=== PATIENT | male | born 1955 | race Caucasian/White ===

== ENCOUNTER 2021-03-29 12:45 | Inpatient (IN) | payer MEDICARE ==
[2021-03-29] MEDS ORDERED: Midazolam HCl 2 mg/2 ml Vial ONE ×3 (13:00→14:52)
[2021-03-29] MEDS ORDERED: Fentanyl 100 MCG/2 ML VIAL ONE ×2 (13:00→14:52)
[2021-03-29] MEDS ORDERED: TICAGRELOR 90 MG TABLET ONE (13:21)
[2021-03-29] MEDS ORDERED: Adenosine 6 MG/2 ML VIAL ONE ×2 (13:22→14:51)
[2021-03-29] MEDS ORDERED: Acetaminophen 325 MG TAB PO PRN (13:38)
[2021-03-29] MEDS ORDERED: Zolpidem Tartrate 5 MG TAB PO PRN (13:38)
[2021-03-29] MEDS ORDERED: HYDROcodone/Acetaminophen 7.5/325 mg Tablet PO PRN (13:38)
[2021-03-29] MEDS ORDERED: Loperamide HCl 2 MG CAP PO PRN (13:38)
[2021-03-29] MEDS ORDERED: Ondansetron PF 4 MG/2 ML Vial IVP PRN (13:38)
[2021-03-29] MEDS ORDERED: Calcium Carbonate 500 MG ChewTAB PO PRN (13:38)
[2021-03-29] MEDS ORDERED: HYDROcodone/Acetaminophen 5/325 mg Tablet PO PRN (13:38)
[2021-03-29] MEDS ORDERED: Heparin 10,000 UNITS/ 10 ML VIAL ONE (14:50)
[2021-03-29] MEDS ORDERED: Nitroglycerin 50 MG/250 ML BOT 250 ML ONE (14:50)
[2021-03-29] MEDS ORDERED: Bivalirudin 250 MG VIAL ONE (14:51)
[2021-03-29] MEDS ORDERED: Lidocaine 1% PF 5 ML VIAL ONE (14:52)
[2021-03-29] MEDS ORDERED: Nitroglycerin 0.4 MG TAB (25 Tab Bottle) SL PRN (15:05)
[2021-03-29] MEDS ORDERED: Acetaminophen/Codeine 30-300mg Tablet PO PRN ×2 (15:05)
[2021-03-29 15:16] VITALS: BMI 28.5
[2021-03-29] MEDS ORDERED: Sodium Chloride 0.9% 250 ML 200 ML IV PRN (16:19)
[2021-03-29] MEDS ORDERED: Lisinopril 5 MG TAB PO SCH (17:00)
[2021-03-29] MEDS ORDERED: Atropine Sulfate 1 mg/10 ml Syringe ONE (17:45)
[2021-03-29] MEDS: Carvedilol 3.125 MG TAB PO SCH (17:59)
[2021-03-29] MEDS: Rosuvastatin 20 MG TAB PO SCH (20:43)
[2021-03-29] MEDS: Famotidine 20 MG TAB PO SCH (20:43)
[2021-03-29] MEDS: TICAGRELOR 90 MG TABLET PO SCH (20:43)
[2021-03-30 04:05] LABS: #Monocytes 1.2 10x3/uL (0.0-1.1); #Neutrophils 10.6 10x3/uL (1.5-8.4); %Basophils 0.1 % (0.0-2.0); %Monocytes 9.2 % (0.0-10.0); %Neutrophils 81.3 % (40.0-75.0); Hemoglobin 13.8 g/dL (13.5-17.5); Mean Corpuscular HGB CONC 33.5 g/dL (32.0-36.0); Mean Corpuscular Hemoglobin 29.2 pg (27.0-33.0); Mean Corpuscular Volume 87.3 fl (81.2-95.1); Mean Platelet Volume 10.2 fl (7.4-10.4); Platelet Count 246 10x3/uL (150-450); RBC Distribution Width 12.3 % (11.5-14.5); Red Blood Cell (RBC) Count 4.72 10x6/uL (4.32-5.72)
[2021-03-30 04:19] LABS: ALT (SGPT) 58 U/L (8-55); AST (SGOT) 171 U/L (5-34); Albumin 3.8 g/dL (3.4-4.8); Alkaline Phosphatase 82 U/L (40-110); Anion Gap 11 mmol/L (10-20); BUN (Urea Nitrogen) 17 mg/dL (8.4-25.7); Bilirubin, Total 1.1 mg/dL (0.2-1.2); Calc. Creatinine Clearance 97 mL/min (70-130); Calcium 8.9 mg/dL (7.8-10.44); Carbon Dioxide 23 mmol/L (23-31); Cardiac Risk 4.8 (Less than 4.5); Chloride 108 mmol/L (98-107); Cholesterol 200 mg/dl (< 200 Desired); Globulin 2.4 g/dL (2.4-3.5); Glucose 139 mg/dL (80-115); HDL Cholesterol 42 mg/dL (>60 Neg Risk); LDL Cholesterol, Calculated 142 mg/dL; Potassium 4.2 mmol/L (3.5-5.1); Protein, Total 6.2 g/dL (5.8-8.1); Sodium 138 mmol/L (136-145); Triglycerides 81 mg/dL (Less than 150)
[2021-03-30 06:19] LABS: Hemoglobin A1c 5.5 % (4.0-6.0)
[2021-03-30] MEDS: TICAGRELOR 90 MG TABLET PO SCH ×2 (08:01→20:43)
[2021-03-30] MEDS: Carvedilol 3.125 MG TAB PO SCH ×2 (08:02→17:20)
[2021-03-30] MEDS: Famotidine 20 MG TAB PO SCH ×2 (08:02→20:43)
[2021-03-30] MEDS: Lisinopril 5 MG TAB PO SCH (08:02)
[2021-03-30] MEDS: Enoxaparin Sodium 40 MG/0.4 ML SYRINGE SC SCH (08:03)
[2021-03-30 09:01] LABS: Troponin I 35.274 ng/mL (< 0.028)
[2021-03-30 11:04] LABS: SARS-CoV-2 PCR by NAA Not Detected (NotDetected)
[2021-03-30 12:43] LABS: Troponin I 31.013 ng/mL (< 0.028)
[2021-03-30] MEDS: Senokot S 8.6-50 MG TAB PO PRN (20:43)
[2021-03-30] MEDS: Rosuvastatin 20 MG TAB PO SCH (20:43)
[2021-03-31] MEDS: Senokot S 8.6-50 MG TAB PO PRN (07:33)
[2021-03-31] MEDS: Enoxaparin Sodium 40 MG/0.4 ML SYRINGE SC SCH (09:04)
[2021-03-31] MEDS: Famotidine 20 MG TAB PO SCH (09:04)
[2021-03-31] MEDS: TICAGRELOR 90 MG TABLET PO SCH (09:04)
[2021-03-31] MEDS: Carvedilol 3.125 MG TAB PO SCH (09:04)
[2021-03-31] MEDS: Lisinopril 5 MG TAB PO SCH (09:05)
[2021-03-31 13:41] VITALS: BP 94/55; TEMP 97.5
== END 2021-03-31 14:13 | disposition home or self-care (01) | DRG 247 ==
LOC: CSHCCL 12:45 → CSHIMCU 15:00 → CSHTELE 03-30 09:54
PROVIDERS: ADMIT Specialist; ATTEND Specialist
PROC: 027035Z Dilation of Coronary Artery, One Artery with Two Drug-eluting Intraluminal Devices, Percutaneous Approach (ICD-10-PCS; principal; 2021-03-29)
PROC: 02C03ZZ Extirpation of Matter from Coronary Artery, One Artery, Percutaneous Approach (ICD-10-PCS; 2021-03-29)
PROC: 4A023N7 Measurement of Cardiac Sampling and Pressure, Left Heart, Percutaneous Approach (ICD-10-PCS; 2021-03-29)
PROC: B2111ZZ Fluoroscopy of Multiple Coronary Arteries using Low Osmolar Contrast (ICD-10-PCS; 2021-03-29)
DX: I21.02 ST elevation (STEMI) myocardial infarction involving left anterior descending coronary artery (principal); I10 Essential (primary) hypertension; I25.10 Atherosclerotic heart disease of native coronary artery without angina pectoris; E78.5 Hyperlipidemia, unspecified; I07.1 Rheumatic tricuspid insufficiency; Z20.822 Contact with and (suspected) exposure to COVID-19
CPT/HCPCS: 36415; 80053; 80061; 83036; 84484; 85025; 85347; 92941; 92978; 93005; 93010; 93306; 93458; 97139; 99152; 99153; C1753; C1874; C1887; C9606; J0153; J0583; J1644; J1650; J2250; J3010; U0003; U0005

== ENCOUNTER 2021-04-07 12:10 | Emergency (ER) | payer MEDICARE ==
[2021-04-07 13:15] LABS: #Basophils 0.1 10x3/uL (0.0-0.2); #Eosinphils 0.2 10x3/uL (0.0-0.5); #Monocytes 0.5 10x3/uL (0.0-1.1); #Neutrophils 6.7 10x3/uL (1.5-8.4); %Basophils 0.7 % (0.0-2.0); %Eosinophils 2.1 % (0.0-6.0); %Neutrophils 73.8 % (40.0-75.0); Hemoglobin 13.3 g/dL (13.5-17.5); Mean Corpuscular HGB CONC 33.1 g/dL (32.0-36.0); Mean Corpuscular Hemoglobin 29.5 pg (27.0-33.0); Mean Corpuscular Volume 89.1 fl (81.2-95.1); Mean Platelet Volume 10.6 fl (7.4-10.4); Platelet Count 343 10x3/uL (150-450); RBC Distribution Width 11.8 % (11.5-14.5); Red Blood Cell (RBC) Count 4.51 10x6/uL (4.32-5.72)
[2021-04-07 13:24] LABS: INR-International Normal Ratio 0.9; Prothrombin Time 10.4 sec (9.5-12.1)
[2021-04-07 13:33] LABS: ALT (SGPT) 50 U/L (8-55); AST (SGOT) 27 U/L (5-34); Albumin 4.2 g/dL (3.4-4.8); Alkaline Phosphatase 96 U/L (40-110); Anion Gap 14 mmol/L (10-20); BUN (Urea Nitrogen) 26 mg/dL (8.4-25.7); Bilirubin, Total 0.5 mg/dL (0.2-1.2); Calc. Creatinine Clearance 0 mL/min (70-130); Calcium 10.3 mg/dL (7.8-10.44); Carbon Dioxide 25 mmol/L (23-31); Chloride 104 mmol/L (98-107); Globulin 3.2 g/dL (2.4-3.5); Glucose 104 mg/dL (80-115); Protein, Total 7.4 g/dL (5.8-8.1); Sodium 138 mmol/L (136-145)
== END 2021-04-07 15:40 | disposition home or self-care (01) ==
LOC: CSHERS 12:10
DX: S30.1XXA Contusion of abdominal wall, initial encounter (principal); R42 Dizziness and giddiness
CPT/HCPCS: 74174; 80053; 85025; 85610; 85730; 93005

== ENCOUNTER 2023-02-28 13:42 | Outpatient (CLI) | payer MEDICARE | END 2023-02-28 13:43 | disposition home or self-care (01) | LOC: CSHULT 13:42 | PROVIDERS: ATTEND Family Medicine | DX: I73.9 Peripheral vascular disease, unspecified (principal) | CPT/HCPCS: 93923 ==